=== PATIENT | male | born 1960 | race Hispanic/Latino ===

== ENCOUNTER 2019-08-02 06:00 | Day surgery (SDC) | payer OTHER, SELFPAY ==
[2019-07-24 15:22] VITALS: BMI 42.3
[2019-08-02] VITALS (19 sets, daily range): BP systolic 99–174; BP diastolic 61–96; PULSE 57–91; RESP 8–20; TEMP 36–36.8; O2SAT 90–98; BMI 42.0
--- NOTE | 2019-08-02 | DI.RAD.S_ITS ---
PROCEDURE: XR LUMBAR SPINE 1V INDICATIONS: L2-3, L3-4, L4-5 LAMINECTOMIES TECHNIQUE: 1 views of the lumbar spine were acquired. COMPARISON: [facility], , MR LUMBAR SPINE WITHOUT CONTRAST, 05/25/2019, 14:59. [facility], CR, XR LUMBAR SPINE 2 OR 3 VIEWS, 04/19/2019, 14:11. FINDINGS: A intraoperative lateral fluoroscopy images demonstrate surgical probe posterior to L3-L4. IMPRESSION: A surgical probe at the level of L3-L4. Dictated by: Reji Pino M.D. on 08/02/2019 at 16:38 Approved by: Reji Pino M.D. on 08/02/2019 at 16:39
[2019-08-02] MEDS: LACTATED RINGERS 1,000 ML 42 ML IV ×2 (06:50→09:51)
--- NOTE | 2019-08-02 07:24 | PM.PREOP ---
Pre-operative Note Interval Note History & Physical reviewed/Exam performed by Physician: Yes Changes to H&P: No
[2019-08-02] MEDS: CEFAZOLIN 2 GM/100 ML FROZ.PIGGY IV ×2 (07:47→16:29)
--- NOTE | 2019-08-02 08:17 | SUR.OPER ---
Prone on spine table, head in foam head support, padded chest and pelvic supports, gel pad at knees, lower legs supported by pillows; nipples, genitalia and toes free of pressure, arms secured on foam padded arm boards at <90 degrees abduction. Tape over blanket at thigh secured to table.
[2019-08-02] MEDS: VANCOMYCIN 1,000 MG VIAL 1000 MG TOP (08:23)
[2019-08-02] MEDS: SODIUM CHLORIDE 0.9% 1,000 ML, GENTAMICIN 80 MG IRR (08:23)
[2019-08-02] MEDS: BUPIVACAINE 0.25% (PF) 8 ML, fentaNYL 100 MCG INJ (09:47)
--- NOTE | 2019-08-02 10:30 | P.OP_ITS ---
Operative Date/Time/Diagnoses Date of procedure: 08/02/19 Time of procedure: 10:30 Pre-op diagnosis: Lumbar stenosis with radiculopathy Post-op diagnosis: same Procedure & Clinicians Procedure: L2-3, L3-4, L4-5 laminectomies Use of microscope Placement of an epidural catheter Same procedure as scheduled: Yes Indications: [age] year old male with intractable pain from stenosis. They had failed conservative management and requested operative intervention. Risks and benefits of surgery were discussed and appropriate consents were obtained. Surgeon: Stephen Armendariz Energy Operations Vice President: Devora Jimenez Anesthesia Type: General Operative Notes Findings: Small bleb, repaired primarily Closure Type: primary Specimen(s): none sent Applied: catheter Estimated Blood Loss (mL): 20 Blood products transfused: none Procedure in detail: Patient was brought to the operating room and intubated on the table. They were rolled over on the well-padded prone position on the Kana table. A time-out was performed. Preoperative antibiotics were given. The back was prepped and draped in standard sterile fashion. Using fluoroscopy for localization, a 10 cm incision was made in the midline. We used Bovie to dissect through the lumbodorsal fascia and then subperiosteally dissect the paraspinal muscles off the right side. A marker was placed and x-ray was taken to confirm positioning. We then brought in the microscope. A right-sided laminectomy was performed at L4-5, L3-4, and L2-3. We carefully depressed the dura and reached across the midline to decompress the opposite side. The neural foramen were cleared out. At the end, we could reach with the ball probe cephalad and caudally across the midline and to the foramen and everything was opened. There was a small 1 mm bleb at L2-3. This did not appear to be leaking but I wanted to over sew it to be safe. We used 6 0 silk to over sew this area and tie it. The wound was irrigated. An epidural catheter was prepared with 8 mL of 0.25% Marcaine and 100 mcg of fentanyl. The dura was carefully depressed and the catheter was advanced 6 cm cephalad underneath remaining lamina without resistance. A piece of DuraGen was placed over the repair site. The fascia was then closed in layers. The epidural catheter was injected without complications. Vancomycin powder was placed in the wound. The superficial and the skin were closed. Sterile dressing was placed. Patient was rolled over extubated brought to recovery room with no complications. Complications: none Post-operative Condition: stable Disposition: PACU Plan for aftercare: Inpatient. Up with physical therapy as tolerated.
[2019-08-02] MEDS: HYDROMORPHONE 2 MG INJ 0.5 MG IV ×3 (10:53→11:21)
[2019-08-02] MEDS: hydrOXYzine 50 MG/ML INJ 25 MG IM (11:25)
[2019-08-02] MEDS: INSULIN REGULAR 100 UNIT/ML 3 ML VIAL IV (11:35)
--- NOTE | 2019-08-02 11:46 | SUR.PHASEI ---
Dr. Warner notified glucose 221, VVO for 4U regular insulin IV.
--- NOTE | 2019-08-02 11:59 | SUR.PHASEI ---
Report called to Kiley. Still having intermittent desats to mid 80s on 2lnc while awake. Currently 98% 2lnc.
[2019-08-02] MEDS: OXYCODONE/ACETAMINOPHEN 5/325 TABLET 1 TAB PO (12:02)
--- NOTE | 2019-08-02 12:11 | SUR.PHASEI ---
Pt maintaining o2 sat 98-100% on 2lnc.
--- NOTE | 2019-08-02 12:28 | SUR.PHASEI ---
Pt transferred to the floor with o2 and belongings bag. Report to Cristhian Holman IV saline locked. +sensation and movement to roshni feet. ERIC CDI.
[2019-08-02] MEDS: LACTATED RINGERS 1,000 ML 125 ML IV (13:01)
--- NOTE | 2019-08-02 16:15 | PT.IIE ---
Current Diagnoses Spinal stenosis, lumbar region with neurogenic claudication (08/02/19) Surgery Performed Operation Date: 08/02/19 07:45 Actual Procedures p L2-3,L3-4,L4-5 laminectomies - Stephen Armendariz MD Surgical History (Last Updated 07/26/19 @ 13:49 by Deena Medellin, RN) Hx of colonoscopy (Acute) Hx of esophagogastroduodenoscopy (Acute) Hx of knee surgery (Acute) Medical History (Last Updated 07/26/19 @ 13:49 by Deena Medellin RN) Chronic low back pain with left-sided sciatica (Acute) Diabetes (Acute) Lumbar degenerative disc disease (Acute) Physical Therapy Inpatient Evaluation/Re-Eval M1 PT/OT-IP Prior Functional Status Start: 08/02/19 17:53 Freq: NEEDED Status: Active Protocol: Document 08/02/19 16:15 AB (Rec: 08/02/19 18:13 AB [id number]) Medical Review Prior Functional Status Medical History Reviewed Yes Communication able to make needs known; korean speaking: terrazzo polisher in room with pt Mobility and Gait pt stated that she is independent with all mobilities and ambulation without AD but uses a SPC occasionally depending on level of pain. Social History Household Members spouse,children Living Arrangements House Number of Floors (Floors) One Floor Number of Stairs To Enter/Railing? 3 steps to etner with bilateral rails Home Environment High Toilet,Walk in Shower Home Equipment Shower Seat without Backrest Additional Social History Comment pt's spouse stated that she cannot assist pt much due to her own back issues; pt lives with his daughter and son-in- law at home but both goes to work M2 PT-IP Current Condition Start: 08/02/19 17:53 Freq: NEEDED Status: Active Protocol: Document 08/02/19 16:15 AB (Rec: 08/02/19 18:13 AB [id number]) Physical Therapy Current Condition Current Condition Evaluation Date 08/02/19 Treatment Diagnosis L2-5 laminectomies; difficulty in walking Onset Date 08/02/19 Precautions Lumbar Precautions Log Roll,No Twisting,Limit Bending,Lifting Restriction of 10 lbs,Gait Belt above Incisional Area M3 PT-IP Subjective Start: 08/02/19 17:53 Freq: NEEDED Status: Active Protocol: Document 08/02/19 16:15 AB (Rec: 08/02/19 18:13 AB [id number]) Subjective Physical Therapy Visit Type Type Initial Evaluation Visit Start Time 16:15 Visit Stop Time 17:11 Total Visit Minutes 56 Number of MUSEUM ASSISTANT Visits 0 Physical Therapy Visit Comments Patient Comments pt agreeable to do PT Therapy Pain Assessment Pain When Pain Assessed At Rest Pain Present Pain Present Pain Reported Location Back Intensity 5 Scale Used increases to 8/10 with mobility Pain Behaviors Guarding,Wincing Pain Management Techniques Apply Cold,Timing of Activity with Medications M4 PT-IP Mobility and Gait Start: 08/02/19 17:53 Freq: NEEDED Status: Active Protocol: Document 08/02/19 16:15 AB (Rec: 08/02/19 18:13 AB [id number]) PT-Bed Mobility Assessment Rolling Type of Rolling Log Rolling Level of Assist Minimal Assistance Supine to Sit Supine to Sit Moderate Assistance,1 Person Assistance,Bedrails Scooting Scooting to Edge of Bed Standby Assistance PT-Transfer Assessment Sit to and From Stand Sit to and from Stand Contact Guard Assistance Equipment Transfer Assistive Device Gait Belt,Front Wheeled Walker Orthotic/Prosthetic Devices or Brace: No Transfers Transfer Destination Chair Transfer Technique pt ambulated using FWW Transfer Ability Level of Assist Contact Guard Assistance, Minimal Assistance,1 Person Assistance,Use of Upper Extremities Comments Mobility Comments terrazzo polisher present during PT session. reviewed precautions and log roll bed mobility with pt. pt completed bed mobility supine to sit mod A and cues. pt was able to sit on EOB CGA. pt completed sit to stand CGA and cues. pt ambulated in room using FWW ~ 30 ft CGA. pt requested to sit up on the chair and ambulated towards the chair ~ 12 ft using FWW CGA. positioned pt on the chair. call light and table placed within reach. left pt with spouse and terrazzo polisher in room . Gait Assessment Gait Gait Assistance Required: Contact Guard Assist Distance (Feet) 30 Able to Maintain Weight Bearing Status Yes During Gait Assistive Devices Assistive Device Gait Belt,Front Wheeled Walker Orthotic/Prosthetic Devices or Brace: No Gait Deviations General Gait Pattern Antalgic,Decreased Stride Length,Decreased Feet Clearance Factors Limiting Gait Function Factors Limiting Gait Function Decreased Activity Tolerance, Decreased Strength,Limited Range of Motion,Pain,Poor Balance,Poor Safety Awareness, Respiratory Distress PT-Balance Assessment Sitting Balance and Reactions Static Sitting Balance Ability Good Dynamic Sitting Balance Ability Good Standing Balance and Reactions Static Standing Balance Ability Fair Dynamic Standing Balance Ability Fair Device Used FWW M5 PT-IP Objective Assessments Start: 08/02/19 17:53 Freq: NEEDED Status: Active Protocol: Document 08/02/19 16:15 AB (Rec: 08/02/19 18:13 AB [id number]) Orientation Orientation/Cognition Level of Alertness Alert Orientation Name,Age,Birthday,Month,Date, Year,Day of Week,Place, Situation Language Function Ability No Deficits Noted Safety Awareness Understands Safety Issues Gross Range of Motion Lower Extremity ROM Assessment Within Functional Limits Strength Lower Extremity Strength Assessment Bilaterally Impaired Hip 4-/5 Knee 4-/5 Coordination Assessment Gross Coordination Gross Coordination WNL Sensation Assessment Sensation Gross Sensation WNL Muscle Tone Muscle Tone WNL Yes M6 PT-IP Treatment Start: 08/02/19 17:53 Freq: NEEDED Status: Active Protocol: Document 08/02/19 16:15 AB (Rec: 08/02/19 18:13 AB [id number]) Physical Therapy Treatment Education Education Provided Precautions,Weight Bearing Status,Post-Op Packet,Safety M7 PT-IP Assessment and Plan Start: 08/02/19 17:53 Freq: NEEDED Status: Active Protocol: Document 08/02/19 16:15 AB (Rec: 08/02/19 18:13 AB [id number]) PT Summary Assessment and Plan Potential Rehabilitation Potential Good Status of Condition at Evaluation Stable Summary Impairments Pain,ROM,Strength,Balance, Coordination,Sensation,Bed Mobility,Transfers,Gait, Activity Tolerance Assessment Summary pt requiring mod A with bed mobility and CGA to min A with transfers and ambulation using FWW. pt's spouse will not be able to physically assist pt much. will conduct caregiver training when appropriate. pt also has stairs to enter the house and will complete stair training prior to d/c. d/c plan depending on progress and if spouse will be able to safely assist pt. will continue to assess progress. pt also will need a FWW if not safe to ambulate with SPC. pt wants FWW order to be processed here . will ask for doctor's order for FWW. Goals Bed Mobility Goal Standby Assistance Transfer Goal Standby Assistance,Front Wheeled Walker Gait Goal Standby Assistance,Front Wheel Walker Gait Distance 150 Other Goals up/down 3 steps bilateral rails SBA Days to Meet Goals 5 Frequency of Treatment Frequency Of Treatment Twice a Day Treatment Plan Physical Therapy Treatment Plan Bed Mobility Training,Transfer Training,Gait Training, Therapeutic Exercise,Balance Retraining,Post Op Education, Discharge Planning,Hot or Cold Pack,Neuromuscular Re-ed, Coordination Retraining,Manual Therapy Other Recommendations and Next Treatment bed mobility, ambulation, Focus caregiver training, stair training Recommendations To Nursing Amount of Assist Needed 1 Person Assist Discharge Recommendations PT Discharge Recommendations Home with Assistance Equipment Needed for Home Before FWW if not safe with SPC Discharge
[2019-08-02] MEDS: OXYCODONE/ACETAMINOPHEN 5/325 TABLET 2 TAB PO (16:31)
[2019-08-02] MEDS: INSULIN ASPART 100 UNIT/ML INSULN PEN SUBCUT (16:37)
[2019-08-02] MEDS: ATORVASTATIN 20 MG TABLET PO (20:38)
[2019-08-02] MEDS: GABAPENTIN 300 MG CAPSULE PO (20:39)
[2019-08-02] MEDS: METFORMIN HCL 500 MG TABLET PO (20:39)
[2019-08-02] MEDS: DOCUSATE 100 MG CAPSULE PO (20:39)
[2019-08-02] MEDS: SENNOSIDES 8.6 MG TABLET 17.2 MG PO (20:39)
[2019-08-03] MEDS: CEFAZOLIN 2 GM/100 ML FROZ.PIGGY IV (00:05)
[2019-08-03] MEDS: LACTATED RINGERS 1,000 ML 125 ML IV (00:05)
[2019-08-03 00:09] VITALS: BP 107/61; PULSE 72; RESP 18; TEMP 37.1; O2SAT 96
[2019-08-03] MEDS: OXYCODONE/ACETAMINOPHEN 5/325 TABLET 2 TAB PO ×3 (00:10→12:28)
[2019-08-03 05:38] VITALS: BP 106/57; PULSE 74; RESP 16; TEMP 36.8; O2SAT 92
[2019-08-03 06:24] LABS: Hematocrit 36.5 % (41-53); Hemoglobin 12.2 g/dL (13.5-17.5)
[2019-08-03] MEDS: PANTOPRAZOLE 20 MG TABLET PO (06:28)
[2019-08-03 08:10] VITALS: BP 112/66; PULSE 72; O2SAT 94
--- NOTE | 2019-08-03 08:19 | PM.PNPO.1 ---
Subjective Subjective Date Patient Seen: 08/03/19 Time Patient Seen: 08:19 Interval history: He is doing well. He has been up and out of bed independently. Some tingling in the left leg and a little pain on the lateral right leg but overall doing much better. Exam Vital Signs (past 8 hours): - 08/03/19 05:38 08/03/19 08:10 Temperature 98.3 F Pulse Rate 74 72 Respiratory Rate 16 Blood Pressure 106/57 L 112/66 Pulse Oximetry 92 94 Oxygen Delivery Method Nasal Cannula Oxygen Flow Rate 0 Const Orientation: alert and oriented x3 Back/Spine/Pelvis Other: Moderate drainage. 5/5 motor both lower extremities Objective Labs Result Diagrams: 08/03/19 05:55 Labs: Laboratory Results - last 24 hr 08/03/19 05:55 Hgb 12.2 L Hct 36.5 L Assessment & Plan Post-op Postoperative Procedures: Procedures Operation Date: 08/02/19 07:45 Actual Procedures Side Surgeon p L2-3,L3-4,L4-5 laminectomies Stephen Armendariz MD he is doing well. We will mobilize him with physical therapy again this morning and anticipate discharge home. Quality VTE Deep Vein Thrombosis/Pulmonary Embolism Present on Admission: No
[2019-08-03] MEDS: METFORMIN HCL 500 MG TABLET PO (08:33)
[2019-08-03] MEDS: DOCUSATE 100 MG CAPSULE PO (08:33)
[2019-08-03] MEDS: INSULIN ASPART 100 UNIT/ML INSULN PEN SUBCUT (08:34)
--- NOTE | 2019-08-03 09:52 | PC.NURSE ---
Addendum entered by Rubia Kemp R.N. 08/03/19 13:59: Pt's helped him get dressed into his personal clothing. Pt states is ready to be discharged home. Prescriptions faxed to [facility] in [place] on [address] per pt's request. Originals X3 also given to pt. Discharge summary packet reviewed with pt, his and Betzy LeijaCarrier Packer at bedside who was in pt's room throughout this shift. Reviewed S/S of stroke through Ischemic stroke discharge packet, pt aware this is for S/S only as Hospital wide education of awareness. Instructions given in Canadian and Slovenian. No voiced concerns at discharge time. States has all belongings. Pt left unit via wheelchair at 1358 in no distress, his present to drive him home. AVIATION ELECTRICAL TECHNICIAN escort with [employer] at his side as well. Addendum entered by Rubia Kemp R.N. 08/03/19 12:41: Pt voided 400mls post urinary catheter removal. Voided without difficulty. Addendum entered by Rubia Kemp R.N. 08/03/19 12:00: lower back dressing removed for saturated amount of sero-sang drainage. Incision cleansed with NS and dry with gauze. Incision well approximated with stitches intact, no S/S of infection, no active drainage noted. One coversite dressing applied. Pt tolerated well. Original Note: Day Shift- [employer] with Translation services in room. Wearing ID badge. Pt A&OX4, able to understand little Canadian, Aware to use red button transmission builder light for assist. High fall risk precautions in place, bed alarm on. Rates 4-5/10 aching to lower back. Medicated with prn Percocet at 0830. Denies nausea. Tolerated breakfast. Lower back gauze dressing saturated with sero-sang drainage, Intact tegaderm dressing. CMS+, does state having little numbness/tingling to left toes. Urinary catheter removed at 0825 without difficulty, aware of use of urinal and post urinary catheter expectations. No further voiced concerns, pt does state wanting to go home later today. IVF S/L'd to right hand at 0820.
--- NOTE | 2019-08-03 10:58 | CM.DPC ---
Addendum entered by Wen Rivera LPN 08/03/19 13:15: Checked in with pt and his and the button facing machine operator. Introduced self and role. Pt had just completed a session with PT Shane and had been cleared from a PT standpoint for the d/c to home setting. Pt confirms he is aware of this and feels very comfortable going home today. His is driving him. Pt does say he had a chan catheter which was taken out this morning and that he still needs to urinate. I just have not had the need to do so yet. Pt is expected to d/c to home today as per his preop plan. He does confirm that [facility] Calvin Garay is his PCP. His L&I digital strategist senior manager is Rodriguez Fletcher. Original Note: Discharge Planning/Care Management DCP: assessment: Case received, EMR reviewed and discussed in Team Rounds. Pt is a 59 year old male who admitted 08/02 for a planned spinal surgery: Payer: L&I Surgeon: Dr. Armendariz Pre op assessment byclif OCHOA 07/24/see below/is noted. PT is following and a d/c to home order is in if pt is cleared for home setting today by therapy team. ? of walker need... P: check in with pt and his button facing machine operator and follow prn for d/c issues and options. CM Discharge Assessment Start: 08/03/19 10:57 Freq: Status: Active Protocol: Document 08/03/19 10:57 ITV (Rec: 08/03/19 10:58 ITV [id number]) Discharge Planning Assessment Advance Directives? No Advance Directives on File No History Provided By Patient,Family Member,Friend, Medical Record Prior Living Arrangements House Household Members spouse,children Comment spouse, son and DIL Independent with ADL's Yes Is patient alert and oriented? Yes Review Status In Process Pre-Anesthesia Assessment Start: 07/24/19 15:22 Freq: Status: Complete Protocol: Document 07/24/19 15:22 CAB (Rec: 07/24/19 15:29 CAB [id number]) Pre-Anesthesia Assessment Patient Information Reviewed Via Chart Review Diagnostic Results EKG Primary Care Provider Rodriguez Fletcher Seen Specialist in Last 12 Months Yes Specialist Seen Orthopedist Primary Language Cameroonian Preferred Language Second Facing Baster Required Yes Comment Provided by Translating Services paid for DLI Height 167.64 cm Weight 118.841 kg Body Mass Index (BMI) 42.3 Barriers to Learning Language Anesthesia Review Requested No Vessel Master No alcohol intake former Smoking Status Former smoker Pain Present Pain Reported Comment Back, knee Musculoskeletal Symptoms Back Pain,Limited Range of Motion,Numbness,Tingling History of Falling (Recent or History of Yes ) Patient is completely paralyzed or No completely immobile Mental Status Oriented to own ability Currently Taking a Beta Carlo No Hx Chest Pain No Hx SOB No Hx Syncope or Dizziness No Anti-Coagulant Therapy No Has a Supply Chain Buyer No Cardiac Testing No Hx Pacemaker/ICD No Pacemaker Rep Required? No Cardiac Clearance Received Not Applicable dysphagia No Urinary Catheter Present No Hx Urinary Self Catheterization No Diabetes Yes HgbA1C 7.0 Date 07/23/19
[2019-08-03 12:00] VITALS: BP 131/79; PULSE 69; RESP 16; TEMP 36.9; O2SAT 94
--- NOTE | 2019-08-03 12:21 | PT.IPTN ---
Current Diagnoses Spinal stenosis, lumbar region with neurogenic claudication (08/02/19) Surgery Performed Operation Date: 08/02/19 07:45 Actual Procedures p L2-3,L3-4,L4-5 laminectomies - Stephen Armendariz MD Physical Therapy Treatment Note M2 PT-IP Current Condition Start: 08/02/19 17:53 Freq: NEEDED Status: Active Protocol: Document 08/02/19 16:15 AB (Rec: 08/02/19 18:13 AB [id number]) Physical Therapy Current Condition Current Condition Evaluation Date 08/02/19 Treatment Diagnosis L2-5 laminectomies; difficulty in walking Onset Date 08/02/19 Precautions Lumbar Precautions Log Roll,No Twisting,Limit Bending,Lifting Restriction of 10 lbs,Gait Belt above Incisional Area M3 PT-IP Subjective Start: 08/02/19 17:53 Freq: NEEDED Status: Active Protocol: Document 08/03/19 12:13 (Rec: 08/03/19 12:21 [id number]) Subjective Physical Therapy Visit Type Type Treatment Note Visit Start Time 08:42 Visit Stop Time 08:57 Total Visit Minutes 15 Number of PRESS TENDER SMOKE SIGNAL Visits 0 Physical Therapy Visit Comments Patient Comments pt agreeable to do PT Therapy Pain Assessment Pain When Pain Assessed During Mobility Pain Present Pain Present Pain Reported Location Back Intensity 4 Scale Used Numeric (1 - 10) Pain Management Techniques Apply Cold,Timing of Activity with Medications M4 PT-IP Mobility and Gait Start: 08/02/19 17:53 Freq: NEEDED Status: Active Protocol: Document 08/03/19 12:13 HH (Rec: 08/03/19 12:21 [id number]) PT-Bed Mobility Assessment Rolling Type of Rolling Log Rolling Level of Assist Standby Assistance Supine to Sit Supine to Sit Standby Assistance Scooting Scooting to Edge of Bed Standby Assistance PT-Transfer Assessment Sit to and From Stand Sit to and from Stand Standby Assistance Equipment Transfer Assistive Device Gait Belt,Front Wheeled Walker Orthotic/Prosthetic Devices or Brace: No Transfers Transfer Destination Bed,Chair Transfer Technique pt ambulated using FWW Transfer Ability Level of Assist Standby Assistance,Use of Upper Extremities Comments Mobility Comments General Pediatrician present during PT session. Pt was able to recall all precautions and log roll method. He completed log roll and supine to sit x 2 with SBA safely. He was able to sit <> stand and transfer with SBA and FWW. Gait Assessment Gait Gait Assistance Required: Standby Assistance Distance (Feet) 250 Able to Maintain Weight Bearing Status Yes During Gait Assistive Devices Assistive Device Gait Belt,Front Wheeled Walker Orthotic/Prosthetic Devices or Brace: No Gait Deviations General Gait Pattern Antalgic,Decreased Stride Length,Decreased Feet Clearance Factors Limiting Gait Function Factors Limiting Gait Function Decreased Activity Tolerance, Decreased Strength,Limited Range of Motion,Pain,Poor Balance,Poor Safety Awareness, Respiratory Distress Comments Gait Comments pt did c/o back soreness while ambulation. Stair Climbing Assessment Evaluation Level of Assist On Stairs Contact Guard Assistance,1 Person Assistance Devices Stair Climbing Assistive Devices Left Railing,Right Railing Technique/Endurance Stair Climbing Direction Ascend and Descend Stair Climbing Technique Step to Step Number of Steps Climbed 3 Stair Climbing Set # Repetitions (reps) 2 Comments Stair Climbing Comments Pt reports it is easier to descend by leading with L LE. PT-Balance Assessment Sitting Balance and Reactions Static Sitting Balance Ability Good Dynamic Sitting Balance Ability Good Standing Balance and Reactions Static Standing Balance Ability Good Dynamic Standing Balance Ability Good Device Used FWW M5 PT-IP Objective Assessments Start: 08/02/19 17:53 Freq: NEEDED Status: Active Protocol: Document 08/02/19 16:15 AB (Rec: 08/02/19 18:13 AB [id number]) Orientation Orientation/Cognition Level of Alertness Alert Orientation Name,Age,Birthday,Month,Date, Year,Day of Week,Place, Situation Language Function Ability No Deficits Noted Safety Awareness Understands Safety Issues Gross Range of Motion Lower Extremity ROM Assessment Within Functional Limits Strength Lower Extremity Strength Assessment Bilaterally Impaired Hip 4-/5 Knee 4-/5 Coordination Assessment Gross Coordination Gross Coordination WNL Sensation Assessment Sensation Gross Sensation WNL Muscle Tone Muscle Tone WNL Yes M6 PT-IP Treatment Start: 08/02/19 17:53 Freq: NEEDED Status: Active Protocol: Document 08/03/19 12:13 (Rec: 08/03/19 12:21 [id number]) Physical Therapy Treatment Education Education Provided Precautions,Weight Bearing Status,Post-Op Packet,Safety Equipment Issued Equipment Type and Company FWW and adjusted for pt's height M7 PT-IP Assessment and Plan Start: 08/02/19 17:53 Freq: NEEDED Status: Active Protocol: Document 08/03/19 12:13 (Rec: 08/03/19 12:21 [id number]) PT Summary Assessment and Plan Potential Rehabilitation Potential Good Status of Condition at Evaluation Stable Summary Impairments Pain,ROM,Strength,Balance, Coordination,Sensation,Bed Mobility,Transfers,Gait, Activity Tolerance Progress Towards Goals Safe For Discharge Assessment Summary General Pediatrician and attended session. Reviewed precautions and log roll with them again and Pt progressed very well with bed mob, transfer and gait with SBA and FWW. He is CGA for stair climbing and did c/o increase in back pain while amb and climbing stair. Pt will have his nephews x2 to assist him and his as needed. Issued FWW for mobility as well. Pt is ready to be d/c home with family assistance at this point. Frequency of Treatment Frequency Of Treatment Discharge Discharge Recommendations PT Discharge Recommendations Home with Assistance
== END 2019-08-03 13:58 | disposition home or self-care (01) ==
LOC: OR 12:34 → AC 12:35
PROVIDERS: PCP Registered Nurse; Visit Provider Orthopaedic Surgery
PROC: (CPT 63047; principal; 2019-08-02 07:45)
DX: M48.062 Spinal stenosis, lumbar region with neurogenic claudication (principal); E66.01 Morbid (severe) obesity due to excess calories; Z68.41 Body mass index [BMI] 40.0-44.9, adult; Z79.84 Long term (current) use of oral hypoglycemic drugs
CPT/HCPCS: 63047; 63048 ×2; 36415; 72020; 76000; 82962; 85014; 85018; 97161; 97165; 97530; 97535; C1776; J0330; J0690; J1100; J1170; J2405; J2704; J3010; J3410